=== PATIENT | male | born 1970 | race American Indian/Alaskan Native ===

== ENCOUNTER 2019-06-07 17:33 | Emergency (ER) | payer SELFPAY ==
--- NOTE | 2019-06-07 17:52 | Event Note ---
ED Screening Note Date of service: 06/07/19 Time: 17:50 ED Screening Note: This is a 49 y.o. M. that presents to the ER with left 1st finger pain and swelling. This initial assessment/diagnostic orders/clinical plan/treatment(s) is/are subject to change based on patients health status, clinical progression and re- assessment by fellow clinical providers in the ED. Further treatment and workup at subsequent clinical providers discretion. Patient/guardian urged not to elope from the ED as their condition may be serious if not clinically assessed and managed. Initial orders include: XR of left fingers
--- NOTE | 2019-06-07 18:28 | XRay Report ---
Left thumb, 3 views INDICATION: Pain following injury today FINDINGS: The distal phalanx of the thumb is dislocated dorsally. There is no definite fracture. Signer Name: Alo Valle MD Signed: 06/07/2019 6:23 PM Workstation Name: [id number]
[2019-06-07] MEDS ORDERED: IBUPROFEN PO ONE (19:34)
[2019-06-07] MEDS ORDERED: XYLOCAINE 1% MPF 5 mL INFILTRATI ONE (19:34)
[2019-06-07] MEDS ORDERED: ZOFRAN ODT PO ONE (19:34)
[2019-06-07] MEDS ORDERED: NORCO 5/325 PO ONE (19:34)
--- NOTE | 2019-06-07 22:22 | XRay Report ---
LEFT THUMB 3 VIEWS INDICATION / CLINICAL INFORMATION: post reduction. COMPARISON: This study at 9:52 PM was compared to earlier study at 6:08 PM same day FINDINGS: The previously noted dislocation of the thumb IP joint has been relocated and now projects in expecte d position. There is a tiny fracture fragment along the ulnar and volar aspect of the thumb IP joint. Signer Name: Yousuf Krueger MD Signed: 06/07/2019 10:17 PM Workstation Name: [id number]
--- NOTE | 2019-06-07 22:31 | Emergency Department Report ---
ED Upper Extremity Inj HPI - General Chief Complaint: Extremity Injury, Upper Stated Complaint: (L) FINGER/THUMB INJURY Time Seen by Provider: 06/07/19 17:50 Source: patient Mode of arrival: Ambulatory Limitations: No Limitations - History of Present Illness Initial Comments: Patient is a 49-year-old white male with no past medical history presents the ED with complaint of acute onset of left thumb pain with deformity and swelling after he accidentally hit the left thumb on a concrete wall when swimming in the about cause. Patient states that he is unable from an active range of motion of the left thumb due to severe pain. Patient denies numbness, tingling or weakness of left thumb, left hand injury her left wrist pain. MD Complaint: Injury to:: left, finger (Thumb pain and deformity) -: Sudden, hour(s) (4) Other Extremity Injury: Fingers: Left (left thumb) Other Injuries: none Place: outdoors (pool) Improves With: none Worsens With: movement of extremity Context: direct blow (hit the left thumb) Associated Symptoms: denies other symptoms. denies: weakness, numbness, neck pain, suspects foreign body, nausea/vomiting, heard/felt popping sensat - Related Data Previous Rx's Medication Instructions Recorded Last Taken Type Acetaminophen/Codeine [Tylenol 1 tab PO Q6H PRN #12 tab 06/07/19 Unknown Rx /Codeine # 3 tab] Ibuprofen [Motrin] 800 mg PO Q8HR PRN #20 tablet 06/07/19 Unknown Rx Allergies Allergy/AdvReac Type Severity Reaction Status Date / Time No Known Allergies Allergy Unverified 06/07/19 17:36 ED Review of Systems ROS: Stated complaint: (L) FINGER/THUMB INJURY Other details as noted in HPI Comment: All other systems reviewed and negative Constitutional: no symptoms reported, see HPI Eyes: denies: eye pain, eye discharge, vision change ENT: denies: ear pain, throat pain Respiratory: denies: cough, shortness of breath, wheezing Cardiovascular: denies: chest pain, palpitations Endocrine: no symptoms reported Gastrointestinal: denies: abdominal pain, nausea, vomiting, diarrhea Genitourinary: denies: urgency, dysuria Musculoskeletal: joint swelling (left thumb), arthralgia (left thumb). denies: back pain Skin: denies: rash, lesions Neurological: denies: headache, weakness, paresthesias Psychiatric: denies: anxiety, depression Hematological/Lymphatic: denies: easy bleeding, easy bruising ED Past Medical Hx - Past Medical History Previous Medical History?: No Hx Asthma: No - Surgical History Past Surgical History?: Yes Hx Appendectomy: No Additional Surgical History: Right leg - Social History Smoking Status: Never Smoker Substance Use Type: None - Medications Home Medications: Home Medications Medication Instructions Recorded Confirmed Last Taken Type Acetaminophen/Codeine [Tylenol 1 tab PO Q6H PRN #12 tab 06/07/19 Unknown Rx /Codeine # 3 tab] Ibuprofen [Motrin] 800 mg PO Q8HR PRN #20 tablet 06/07/19 Unknown Rx ED Physical Exam - General Limitations: No Limitations General appearance: alert, in no apparent distress - Head Head exam: Present: atraumatic, normocephalic, normal inspection - Eye Eye exam: Present: normal appearance, PERRL, EOMI. Absent: scleral icterus, conjunctival injection Pupils: Present: normal accommodation - ENT ENT exam: Present: normal exam, normal orophraynx, mucous membranes moist, TM's normal bilaterally, normal external ear exam - Neck Neck exam: Present: normal inspection, full ROM - Respiratory Respiratory exam: Present: normal lung sounds bilaterally. Absent: respiratory distress, wheezes, rales, rhonchi, chest wall tenderness, accessory muscle use, decreased breath sounds, prolonged expiratory - Cardiovascular Cardiovascular Exam: Present: regular rate, normal rhythm, normal heart sounds. Absent: systolic murmur, diastolic murmur, rubs, gallop - GI/Abdominal GI/Abdominal exam: Present: soft, normal bowel sounds. Absent: hyperactive bowel sounds, hypoactive bowel sounds, organomegaly, pulsatile mass - Rectal Rectal exam: Present: deferred - Extremities Exam Extremities exam: Present: normal inspection, tenderness (left thumb), normal capillary refill, joint swelling (left thumb). Absent: full ROM (limited due to pain on left thumb) - Back Exam Back exam: Present: normal inspection, full ROM. Absent: tenderness, CVA tenderness (R), CVA tenderness (L), muscle spasm, paraspinal tenderness, vertebral tenderness - Neurological Exam Neurological exam: Present: alert, oriented X3, CN II-XII intact, normal gait, reflexes normal - Psychiatric Psychiatric exam: Present: normal affect, normal mood - Skin Skin exam: Present: warm, dry, intact, normal color. Absent: rash ED Course Vital Signs 06/07/19 17:50 Temperature 98.6 F Pulse Rate 83 Respiratory 18 Rate Blood Pressure 129/84 O2 Sat by Pulse 97 Oximetry - Reevaluation(s) Reevaluation #1: 06/07/19 22:39 The patient is alert and oriented 3 and he smokes name distress with normal vital signs. Patient's left thumb x-ray shows dislocation at the DIP joint of the left thumb dorsally. Patient was treated in the ED and the left thumb dislocation was reduced after applying a digital block on the proximal left thumb at the PIP joint to achieve a complete anesthesia. Patient tolerated the procedure well. The postreduction x-ray of the left thumb shows a complete resolution of the DIP joint dislocation of the left thumb but also showed a tiny fracture fragment along the ulnar and volar aspect of the thumb IP joint. The thumb was then splinted with a spica splint and the patient discharged home on pain medications, with a referral to the orthopedic surgeon Dr. King for follow up. Patient was advised to return to the ED immediately if symptoms get worse. 06/07/19 22:42 06/07/19 22:46 ED Medical Decision Making - Radiology Data Radiology results: report reviewed, image reviewed Left thumb x-ray: Shows a dislocation at the DIP joint of the left thumb dorsally. Left thumb post-reduction x-ray: Shows a complete resolution of the DIP joint dislocation of the left thumb but also showed a tiny fracture fragment along the ulnar and volar aspect of the thumb IP joint. - Medical Decision Making The patient is alert and oriented 3 and he smokes name distress with normal vital signs. Patient's left thumb x-ray shows dislocation at the DIP joint of the left thumb dorsally. Patient was treated in the ED and the left thumb dislocation was reduced after applying a digital block on the proximal left thumb at the PIP joint to achieve a complete anesthesia. Patient tolerated the procedure well. The postreduction x-ray of the left thumb shows a complete resolution of the DIP joint dislocation of the left thumb but also showed a tiny fracture fragment along the ulnar and volar aspect of the thumb IP joint. The thumb was then splinted with a spica splint and the patient discharged home on pain medications, with a referral to the orthopedic surgeon Dr. King for follow up. Patient was advised to return to the ED immediately if symptoms get worse. - Differential Diagnosis Left thumb fracture; Left thumb dislocation; Left thumb sprain Critical care attestation.: If time is entered above; I have spent that time in minutes in the direct care of this critically ill patient, excluding procedure time. ED Disposition Clinical Impression: Fracture dislocation of left thumb Qualifiers: Encounter type: initial encounter Fracture type: closed Qualified Code(s): S62.502A - Fracture of unspecified phalanx of left thumb, initial encounter for closed fracture Sprain of left thumb Qualifiers: Encounter type: initial encounter Sprain of finger site: unspecified site Qualified Code(s): S63.602A - Unspecified sprain of left thumb, initial encounter Disposition: TO HOME OR SELFCARE Is pt being admited?: No Does the pt Need Aspirin: No Condition: Stable Instructions: Finger Sprain (ED), Thumb Fracture (ED), Finger Dislocation (ED) Additional Instructions: FOLLOW UP WITH DR. KING THE ORTHOPEDIC SURGEON IN 2-3 DAYS FOR REEVALUATION. RETURN TO THE ED IMMEDIATELY IF SYMPTOMS GET WORSE Prescriptions: Ibuprofen [Motrin] 800 mg PO Q8HR PRN #20 tablet PRN Reason: Pain , Severe (7-10) Acetaminophen/Codeine [Tylenol /Codeine # 3 tab] 1 tab PO Q6H PRN #12 tab PRN Reason: Pain , Severe (7-10) Referrals: JEFF KING MD [Staff Physician] - 3-5 Days Time of Disposition: 22:30 Print Language: NEPALESE
[2019-06-08 00:07] VITALS: BP 133/70
== END 2019-06-07 22:50 | disposition home or self-care (01) ==
LOC: ED 17:33
DX: S62.502A Fracture of unspecified phalanx of left thumb, initial encounter for closed fracture (principal); Z98.890 Other specified postprocedural states; Z79.899 Other long term (current) drug therapy; W22.01XA Walked into wall, initial encounter; Y93.89 Activity, other specified; Y92.89 Other specified places as the place of occurrence of the external cause; Y99.8 Other external cause status
CPT/HCPCS: Q0162